=== PATIENT | female | born 1975 | race Caucasian/White ===

== ENCOUNTER 2016-08-04 11:37 | Emergency (ER) | payer MEDICAID ==
[2016-08-04 11:40] VITALS: RESP 16; TEMP 98.4
[2016-08-04] MEDS ORDERED: NS 1,000 ML IV ONE (12:11)
[2016-08-04] MEDS ORDERED: HYDROmorphONE/DILAUDID 1 MG/ML SYR IVP ONE (12:11)
--- NOTE | 2016-08-04 12:16 | EDPHY ---
H & P Stated Complaint: epigastric pain Time Seen by Provider: 08/04/16 12:01 - Personal History LMP (Females 10-55): 1-7 Days Ago Current Tetanus/Diphtheria Vaccine: Unsure Current Tetanus Diphtheria and Acellular Pertussis (TDAP): Unsure - Medical/Surgical History Hx Asthma: Yes Hx Chronic Respiratory Disease: No Hx Diabetes: No Hx Cardiac Disease: No Hx Renal Disease: No Hx Cirrhosis: No Hx Alcoholism: No Hx HIV/AIDS: No Hx Splenectomy or Spleen Trauma: No Other PMH: lyme disease, chronic pain, asthma, ischemic colitis - Social History Smoking Status: Former smoker Constitutional: Initial Vital Signs Temperature (C) 36.9 C 08/04/16 11:38 Heart Rate 87 08/04/16 11:38 Respiratory Rate 16 08/04/16 11:38 Blood Pressure 153/79 H 08/04/16 11:38 O2 Sat (%) 98 08/04/16 11:38 O2 Delivery Mode Room Air Allergies/Adverse Reactions: No Known Allergies Allergy (Unverified 04/16/16 20:13) Home Medications: Medication Instructions Recorded traMADol [Ultram 50 mg (*)] 50 mg PO QID 01/26/16 Albuterol [Proventil Inhaler HFA 2 puffs IH DAILY PRN 05/06/16 (*)] Diclofenac Sodium [Voltaren 50 MG 100 mg PO DAILY10 05/06/16 (*)] EPINEPHRINE [EPIPEN] 0.3 mg IM ONCE PRN 05/06/16 Ergocalciferol [Vitamin D2 (*)] 50,000 unit PO FR 05/06/16 Gabapentin [Neurontin 100 MG (*)] 100 mg PO DAILY PRN 05/06/16 oxyCODONE IR [Oxycodone Ir (*)] 5 - 10 mg PO Q4HRS PRN #15 tab 05/09/16 Hydromorphone HCl 2 mg PO Q6 #12 tablet 05/15/16 Ondansetron HCl [Zofran] 4 mg PO Q4-6PRN PRN #10 tablet 05/15/16 Ranitidine HCl [Zantac] 150 mg PO DAILY #30 tablet 05/15/16 Medical Decision Making ED Course/Re-evaluation: CHIEF COMPLAINT: Abdominal pain HISTORY OF PRESENT ILLNESS: 41-year-old female who presents with 2 days worth of periumbilical abdominal pain radiating slightly to the right lower quadrant. She has mild nausea but denies vomiting or diarrhea or constipation. She does have a history of ischemic bowel which she has had 2 or 3 times and they have not found any etiology. Generally that feels quite different and she has diffuse pain with that. This is much more localized according to her. She denies fevers chills systemic symptoms and urinary symptoms. REVIEW OF SYSTEMS: A 10 point review of systems was performed and is negative with the exception of the elements mentioned in the history of present illness. PHYSICAL EXAM: HR, BP, O2 Sat, RR. Temp noted General Appearance: Alert, well hydrated, appropriate, and non-toxic appearing. Head: Atraumatic without scalp tenderness or obvious injury Eyes: Pupils equal, round, reactive to light and accommodation, EOMI, no trauma , no injection. Ears: Clear bilaterally, no perforation, normal landmarks Nose: Atraumatic, no rhinorrhea, clear. Throat: There is no erythema or exudates, no lesions, normal tonsils, mucus membranes moist. Neck: Supple, 2+ carotid upstroke, nontender, no lymphadenopathy. Respiratory: No retractions, no distress, no wheezes, and no accessory muscle use. Lungs are clear to auscultation bilaterally. Cardiovascular: Regular rate and rhythm, no murmurs, rubs, or gallops. Bilateral carotid, radial, dorsalis pedis, and posterior tibial pulses intact. Good capillary refill all extremities. Gastrointestinal: Abdomen is soft, tenderness periumbilically and slightly to the right lower quadrant, non-distended, no masses, no rebound, no guarding, no peritoneal signs. Musculoskeletal: Normal active ROM of all extremities, atraumatic. Neurological: Alert, appropriate, and interactive. The patient has normal DTRs and non-focal cranial nerves, motor, sensory, and cerebellar exam. Skin: No rashes, good turgor, no nodules on palpation. Past medical history: Idiopathic intermittent recurrent ischemic bowel Past surgical history: Noncontributory no abdominal surgeries Family history: Noncontributory Social history: Single, employed, does not abuse tobacco drugs or alcohol DIAGNOSTICS/PROCEDURES/CRITICAL CARE TIME: Study: CT of the abdomen and pelvis Indication: periumbilical and right lower quadrant abdominal pain Results: CT scan of the abdomen and pelvis was obtained. The results of the study are normal. The study was read by the radiologist, Dr. posada . I viewed the images myself on the PACS system. DIFFERENTIAL DIAGNOSIS: The differential diagnosis for the patient's abdominal pain included but was not limited to ovarian cyst, pelvic inflammatory disease, ovarian torsion, urinary tract infection, ectopic , cholecystitis, and appendicitis. MEDICAL DECISION MAKING: After assessing laboratory studies including CBC chemistry liver lipase and urine I have ordered a CT scan with contrast of her abdomen and pelvis. Results are pending. She does not have peritoneal signs or surgical abdomen. Unremarkable pelvic in abdomen CT scan. This patient has chronic abdominal pain which is recurrent she will follow up with her regular doctor. - Data Points Laboratory Results: Laboratory Results 08/04/16 13:00 08/04/16 13:00 08/04/16 13:00 WBC 7.30 10^3/uL (3.80-9.50) RBC 4.02 L 10^6/uL (4.18-5.33) Hgb 12.5 L g/dL (12.6-16.3) Hct 36.6 L % (38.0-47.0) MCV 91.0 fL (81.5-99.8) MCH 31.1 pg (27.9-34.1) MCHC 34.2 g/dL (32.4-36.7) RDW 11.9 % (11.5-15.2) Plt Count 176 10^3/uL (150-400) MPV 10.6 fL (8.7-11.7) Neut % (Auto) 51.8 % (39.3-74.2) Lymph % (Auto) 30.4 % (15.0-45.0) [place] % (Auto) 7.8 % (4.5-13.0) Eos % (Auto) 8.9 H % (0.6-7.6) Baso % (Auto) 0.8 % (0.3-1.7) Nucleat RBC Rel Count 0.0 % (0.0-0.2) Absolute Neuts (auto) 3.78 10^3/uL (1.70-6.50) Absolute Lymphs (auto) 2.22 10^3/uL (1.00-3.00) Absolute Monos (auto) 0.57 10^3/uL (0.30-0.80) Absolute Eos (auto) 0.65 H 10^3/uL (0.03-0.40) Absolute Basos (auto) 0.06 10^3/uL (0.02-0.10) Absolute Nucleated RBC 0.00 10^3/uL (0-0.01) Immature Gran % 0.3 % (0.0-1.1) Immature Gran # 0.02 10^3/uL (0.00-0.10) Sodium 143 mEq/L (134-144) Potassium 3.5 mEq/L (3.5-5.2) Chloride 115 H mEq/L (97-110) Carbon Dioxide 23 mEq/l (22-31) Anion Gap 5 mEq/L (8-16) BUN 5 L mg/dL (7-23) Creatinine 0.7 mg/dL (0.6-1.0) Estimated GFR > 60 Glucose 77 mg/dL (70-100) Calcium 7.4 L mg/dL (8.5-10.4) Total Bilirubin 0.4 mg/dL (0.1-1.4) Conjugated Bilirubin 0.1 mg/dL (0.0-0.5) Unconjugated Bilirubin 0.3 mg/dL (0.0-1.1) AST 18 IU/L (14-46) ALT 25 IU/L (9-52) Alkaline Phosphatase 43 IU/L (38-126) Total Protein 5.6 L g/dL (6.3-8.2) Albumin 2.7 L g/dL (3.5-5.0) Lipase 55.0 IU/L (23-300) Beta HCG, Qual NEGATIVE Urine Color Pending Urine Appearance Pending Urine pH Pending Ur Specific Brandon Pending Urine Protein Pending Urine Ketones Pending Urine Blood Pending Urine Nitrate Pending Urine Bilirubin Pending Urine Urobilinogen Pending Ur Leukocyte Esterase Pending Ur Culture Indicated? Pending Urine Glucose Pending Medications Given: Discontinued Medications Hydromorphone HCl (Dilaudid) 0.5 mg IVP EDNOW ONE Stop: 08/04/16 12:12 Last Admin: 08/04/16 12:44 Dose: 0.5 mg Sodium Chloride (Ns) 1,000 mls @ 0 mls/hr IV ONCE ONE PRN Reason: Wide Open Stop: 08/04/16 12:12 Last Admin: 08/04/16 12:44 Dose: 1,000 mls Departure - Departure Disposition: Home, Routine, Self-Care Clinical Impression: Abdominal pain Qualifiers: Abdominal location: periumbilical Qualifier Code: (R10.33) Periumbilical pain Condition: Good Additional Instructions: Follow up with her regular doctor as needed Referrals: [place],. [Primary Care Provider] - As per Instructions Anton Shi MD, FACG [Medical Doctor] - As per Instructions
[2016-08-04 13:06] LABS: % IMMATURE GRANULYOCYTES 0.3 % (0.0-1.1); ABSOLUTE IMMATURE GRANULOCYTES 0.02 10^3/uL (0.00-0.10); ADD DIFF? NO; ADD MORPH? NO; ADD SCAN? NO; ATYPICAL LYMPHOCYTE FLAG 10 (0-99); FRAGMENT RBC FLAG 0 (0-99); HEMATOCRIT 36.6 % (38.0-47.0); HEMOGLOBIN 12.5 g/dL (12.6-16.3); LEFT SHIFT FLG 0 (0-99); LIPEMIA HEMOLYSIS FLAG 90 (0-99); MEAN CELL HEMOGLOBIN 31.1 pg (27.9-34.1); MEAN CELL HEMOGLOBIN CONCENTR. 34.2 g/dL (32.4-36.7); MEAN PLATELET VOLUME 10.6 fL (8.7-11.7); PLATELET CLUMPS FLAG 0 (0-99); PLATELET COUNT 176 10^3/uL (150-400); RED BLOOD CELL COUNT 4.02 10^6/uL (4.18-5.33); RED CELL DISTRIBUTION WIDTH 11.9 % (11.5-15.2)
[2016-08-04 13:32] LABS: ALANINE AMINOTRANSFERASE 25 IU/L (9-52); ALBUMIN 2.7 g/dL (3.5-5.0); ALKALINE PHOSPHATASE 43 IU/L (38-126); ANION GAP 5 mEq/L (8-16); ASPARTATE AMINOTRANSFERASE 18 IU/L (14-46); BILIRUBIN,TOTAL 0.4 mg/dL (0.1-1.4); BILIRUBIN-CONJUGATED 0.1 mg/dL (0.0-0.5); BILIRUBIN-UNCONJUGATED 0.3 mg/dL (0.0-1.1); CALCIUM 7.4 mg/dL (8.5-10.4); CARBON DIOXIDE 23 mEq/l (22-31); CHLORIDE 115 mEq/L (97-110); CREATININE 0.7 mg/dL (0.6-1.0); GLOMERULAR FILTRATION RATE > 60; GLUCOSE 77 mg/dL (70-100); POTASSIUM 3.5 mEq/L (3.5-5.2); SODIUM 143 mEq/L (134-144); TOTAL PROTEIN 5.6 g/dL (6.3-8.2)
[2016-08-04] MEDS ORDERED: IOPAMIDOL (ISOVUE-300) 100 ML BTL IV ONE (13:38)
--- NOTE | 2016-08-04 14:51 | CT ---
CT Scan of the Abdomen and Pelvis (With Contrast) at 1427 hours History: Right lower quadrant abdominal pain. Technique: Axial computed tomographic images of the abdomen and pelvis were obtained with the unevent ful intravenous administration of 80 mL Isovue-300 contrast. No oral or rectal contrast, which limits the study. Dose reduction techniques were utilized. CT Abdomen Findings: Lung bases: Normal. Liver: Normal. Biliary system: No obstruction. Spleen: Normal. Pancreas: Normal. Adrenals: Normal. Kidneys: No obstruction or solid masses.. Abdominal Aorta: No aneurysm. No bowel obstruction, ascites, or significant retroperitoneal lymphadenopathy. CT Pelvis Findings: Appendix appears normal without inflammatory changes. Retroflexed uterus. Moderat e stool throughout the colon, consistent with constipation. No definite adnexal masses. Impression: 1. Mild constipation. 2. No CT evidence of appendicitis, abscess or bowel obstruction. Findings and recommendations discussed with Emergency Department physician, Dr. Vinny Emmanuel at 1440 hours today. Final report concurs with initial preliminary interpretation.
[2016-08-04 15:25] VITALS: BP 115/63; PULSE 64; O2SAT 96
== END 2016-08-04 15:25 | disposition home or self-care (01) ==
DX: R10.33 Periumbilical pain (principal); J45.909 Unspecified asthma, uncomplicated; Z87.891 Personal history of nicotine dependence
CPT/HCPCS: 96374; J1170; Q9967

== ENCOUNTER 2016-08-20 17:16 | Emergency (ER) | payer MEDICAID ==
[2016-08-20] MEDS ORDERED: NS 1,000 ML IV ONE (18:46)
[2016-08-20] MEDS ORDERED: HYDROCODONE/APAP 5/325 TAB PO ONE (18:46)
--- NOTE | 2016-08-20 18:48 | EDPHY ---
H & P Time Seen by Provider: 08/20/16 18:41 HPI/ROS: Chief complaint: Cold symptoms History of present illness: This is a 41-year-old female who presents to the emergency department for cold symptoms. Patient reports the onset of symptoms yesterday. She states symptoms began suddenly. She reports fevers, nasal congestion, sore throat, chest congestion with cough and body aches. She denies specific precipitating factors. She denies alleviating factors. She denies other associated signs or symptoms including no trouble breathing and no rash. Smoking Status: Former smoker Physical Exam: General Appearance: Alert, nontoxic. Eyes: Pupils equal and round no injection. ENT: Tympanic membranes, external auditory canals, external ears and surrounding soft tissue including over the mastoids are unremarkable. Nasopharynx is not injected. There is no rhinorrhea. Oropharynx is mildly injected. There is no edema. There is no exudate. There is no asymmetry. The uvula is midline. No elevation of the tongue. There is no hoarseness, no drooling, no trismus, no stridor. Respiratory: Chest is non tender, lungs are clear to auscultation. Cardiac: regular rate and rhythm Musculoskeletal: Neck is supple and non tender. Extremities have full range of motion and are non tender. Skin: No rashes or lesions. Neurological: Alert and oriented x4. Ambulating without difficulty. No meningismus. Constitutional: Initial Vital Signs Temperature (C) 37.1 C 08/20/16 17:24 Heart Rate 99 08/20/16 17:24 Respiratory Rate 18 08/20/16 17:24 Blood Pressure 103/71 08/20/16 17:24 O2 Sat (%) 97 08/20/16 17:24 O2 Delivery Mode Room Air Allergies/Adverse Reactions: No Known Allergies Allergy (Unverified 04/16/16 20:13) Home Medications: Medication Instructions Recorded traMADol [Ultram 50 mg (*)] 50 mg PO QID 01/26/16 Albuterol [Proventil Inhaler HFA 2 puffs IH DAILY PRN 05/06/16 (*)] Diclofenac Sodium [Voltaren 50 MG 100 mg PO DAILY10 05/06/16 (*)] EPINEPHRINE [EPIPEN] 0.3 mg IM ONCE PRN 05/06/16 Ergocalciferol [Vitamin D2 (*)] 50,000 unit PO FR 05/06/16 Gabapentin [Neurontin 100 MG (*)] 100 mg PO DAILY PRN 05/06/16 oxyCODONE IR [Oxycodone Ir (*)] 5 - 10 mg PO Q4HRS PRN #15 tab 05/09/16 Hydromorphone HCl 2 mg PO Q6 #12 tablet 05/15/16 Ondansetron HCl [Zofran] 4 mg PO Q4-6PRN PRN #10 tablet 05/15/16 Ranitidine HCl [Zantac] 150 mg PO DAILY #30 tablet 05/15/16 Albuterol [Ventolin Hfa Inhaler] 200 puffs IH Q4 #1 mdi 08/20/16 Hydrocodone/APAP 5/325 [Townsend 1 tab PO Q4 #10 tab 08/20/16 5/325 (*)] Medical Decision Making - Diagnostics Imaging: Chest x-ray consistent with airway disease ED Course/Re-evaluation: Patient seen under the supervision of my secondary supervising physician Dr. Jose Michael. Patient presents to the emergency department for cold symptoms. On presentation she is nontoxic. Physical exam is largely unremarkable. Flu swab is negative. Chest x-ray consistent with airway disease. She is IV hydrated. I believe patient is appropriate for outpatient management. She is discharged home. She will be given an inhaler. She is requesting pain medication I will prescribe her Townsend. She states she tapered off of all pain medication she has been on in the past a few months ago. She is comfortable with a short course of pain medication now. She is asked to follow up with primary care doctor for recheck. Return precautions are given. Patient voiced understanding and agreement with plan. Differential Diagnosis: Included but not limited to bronchitis, pneumonia, influenza, upper respiratory tract infections - Data Points Laboratory Results: 08/20/16 18:50 Influenza Typ A,B (DFA) NEGATIVE FOR FLU (NEGATIVE) Medications Given: Discontinued Medications Acetaminophen/Hydrocodone Bitart (Townsend 5/325) 1 tab PO EDNOW ONE Stop: 08/20/16 18:47 Last Admin: 08/20/16 18:49 Dose: 1 tab Sodium Chloride (Ns) 1,000 mls @ 0 mls/hr IV ONCE ONE PRN Reason: Wide Open Stop: 08/20/16 18:47 Last Admin: 02/16/17 18:49 Dose: 1,000 mls Departure - Departure Disposition: Home, Routine, Self-Care Clinical Impression: Acute bronchitis Qualifiers: Bronchitis organism: unspecified organism Qualified Code(s): J20.9 - Acute bronchitis, unspecified Condition: Good Instructions: Acute Bronchitis (ED) Additional Instructions: Follow-up with your primary care doctor for recheck this week without fail You have been prescribed Townsend for pain. Townsend contains Tylenol, do not take extra Tylenol/acetaminophen/Apap with it. It is sedating. If symptoms worsen or new symptoms develop return to the emergency department for recheck Referrals: NONE *PRIMARY CARE P,. [Primary Care Provider] - As per Instructions Prescriptions: Albuterol [Ventolin Hfa Inhaler] 200 puffs IH Q4 #1 mdi Hydrocodone/APAP 5/325 [Townsend 5/325 (*)] 1 tab PO Q4 #10 tab
[2016-08-20 19:59] VITALS: BP 96/61; PULSE 87; RESP 18; TEMP 98.2; O2SAT 94
== END 2016-08-20 19:59 | disposition home or self-care (01) ==
DX: J20.9 Acute bronchitis, unspecified (principal); Z87.891 Personal history of nicotine dependence